=== PATIENT | female | born 1955 | race Caucasian/White ===

== ENCOUNTER 2019-04-03 08:27 | Day surgery (SDC) | payer OTHER ==
[~2019-04-03] VITALS: Ht 160 cm; Wt 59.5 kg
[~2019-04-03 08:27] MED LIST: Co Q-10300 MG PO; EUTHYROX75 MCG PO; NIAC500 PO; VALA500 PO
--- NOTE | 2019-04-03 09:17 | NUR ---
04/03/19 0917 Sugar Hernandez PT DECLINED LIDOCAINE WITH IV START.
== END 2019-04-03 10:19 | disposition home or self-care (01) ==
LOC: ORSCSDS 08:27
PROVIDERS: Surgery
PROC: 0DJD8ZZ Inspection of Lower Intestinal Tract, Via Natural or Artificial Opening Endoscopic (ICD-10-PCS; principal; 2019-04-03 09:45)
DX: Z12.11 Encounter for screening for malignant neoplasm of colon (principal); Z86.010 Personal history of colon polyps; Z80.0 Family history of malignant neoplasm of digestive organs; E78.00 Pure hypercholesterolemia, unspecified; E03.9 Hypothyroidism, unspecified; Z79.899 Other long term (current) drug therapy
CPT/HCPCS: J2704; J7120

== ENCOUNTER 2023-03-13 21:59 | Inpatient (IN) | payer OTHER ==
[~2023-03-13] VITALS: Ht 160 cm; Wt 61.2 kg
[2023-03-13 22:26] LABS: BASOPHILS ABSOLUTE AUTO 0.04 K/mm3 (0.00-0.23); BASOPHILS PERCENT AUTO 0 % (0-2); EOSINOPHILS PERCENT AUTO 0 % (0-6); Hematocrit 43.3 % (33.0-51.0); Hemoglobin 14.9 g/dL (11.5-16.0); IMMATURE GRAN ABSOLUTE AUTO 0.08 K/mm3 (0.00-0.10); IMMATURE GRAN PERCENT AUTO 1 % (0-1); LYMPHOCYTES ABSOLUTE AUTO 0.97 K/mm3 (0.84-5.20); LYMPHOCYTES PERCENT AUTO 6 % (21-46); MONOCYTES ABSOLUTE AUTO 1.15 K/mm3 (0.16-1.47); MONOCYTES PERCENT AUTO 7 % (4-13); Mean Corpuscular HGB 30.8 pg (26.0-34.0); Mean Corpuscular HGB Conc 34.4 g/dL (31.5-36.5); Mean Corpuscular Volume 90 fL (80-100); Mean Platelet Volume 8.7 fL (9.1-12.4); NEUTROPHILS ABSOLUTE AUTO 15.06 K/mm3 (1.96-9.15); NEUTROPHILS PERCENT AUTO 87 % (41-73); Platelet Count 275 K/mm3 (150-400); RDW Coefficient Variation 12.8 % (11.7-14.2); RDW Standard Deviation 41.9 fL (35.1-46.3); Red Blood Cell Count 4.84 M/mm3 (3.80-5.20)
[2023-03-13 22:46] LABS: Albumin, Blood 4.3 g/dL (3.4-5.0); Albumin/Globulin Ratio 1.5 (0.8-1.8); Bilirubin, Total 1.3 mg/dL (0.1-1.0); Bun/Creatinine Ratio 20.7 (12.0-20.0); Calcium, Blood 8.9 mg/dL (8.5-10.1); Creatinine, Blood 0.82 mg/dL (0.40-1.00); Globulin, Blood 2.9 g/dL (2.2-4.0); Total Protein, Blood 7.2 g/dL (6.4-8.2)
[2023-03-13] MEDS ORDERED: PREGABALIN25 MG PO (23:25)
[2023-03-13] MEDS ORDERED: Phendimetrazine35 MG PO (23:25)
[2023-03-14] VITALS (14 sets, daily range): BP systolic 92–120; BP diastolic 54–75
[2023-03-14 01:55] LABS: Source, Urine Clean Catch
[2023-03-14 01:57] LABS: Bilirubin, Urine Neg (Neg); Blood, Urine Neg (Neg); Glucose Qualitative, Urine Neg (Neg); Ketones, Urine 4+ (Neg); Leukocyte Esterase, Urine 1+ (Neg); Nitrite, Urine Neg (Neg); Protein, Urine 1+ (Neg); Urobilinogen, Urine NORM (Normal)
[2023-03-14 02:05] LABS: Appearance, Urine Clear (Clear); Bacteria Few /hpf; Color, Urine Yellow (P-Yellow); Mucus Light (0-Heavy); Red Blood Cells, Urine Not Seen /hpf (0-2); Squamous Epithelial Cells Few /hpf (Few)
--- NOTE | 2023-03-14 03:59 | NUR ---
SHIFT SUMMARY PT ARRIVED TO THE FLOOR AT 0155. TRANSPORTED VIA GURNEY, TRANSFERRED TO BED WITH 1 ASST. PT HAVING PAIN WITH MOVEMENT, K-PAD OBTAINED FOR COMFORT. PT MEDICATED PER EMAR. PT A&O X4, PLEASENT. VSS. NPO AT ARRIVAL, GIVEN SWABS FOR DRY MOUTH. PT ABLE TO GET UP AND VOID. NO BOWEL MOVEMENT. NO OTHER QUESTIONS AT THIS TIME. CALL LIGHT WITHIN REACH.
--- NOTE | 2023-03-14 07:15 | NUR ---
PREOP: DR SIMENTAL IN TO SEE PATIENT AND SIGN CONSENT FOR SURGERY. PT EDUCATED. STATES PAIN AT TOLERABLE LEVEL AT THIS TIME. VSS. PT CONCERN THAT SHE HAS NOT HAD FLUIDS. WILL START PREOP FLUIDS WHEN ORDERED.
--- NOTE | 2023-03-14 08:40 | NUR ---
SURGERY: PT TO DAYSURGERY AT THIS TIME. SPOUSE NOTIFIED. PAS PLACED TO BL LEGS. 18G IV STARTED. PT HAS VOIDED AND REMOVED WATCH AND CLOTHING. WILL CONT TO MONITOR WHEN RETURNS TO ROOM POST OP.
--- NOTE | 2023-03-14 08:58 | NUR ---
PT HAS 18G IN RFA THAT SHOWS NO SIGNS OF INFILTRATION, NO SWELLING, NO INFLAMMATION, NO DRAINAGE NOTED. FLOWS WELL TO GRAVITY.
--- NOTE | 2023-03-14 12:58 | NUR ---
OXYGEN: PT SATS DROP TO 88% WITH SLEEP. PLACED ON 1L O2 TO ALLOW PT REST. WILL CONT TO MONITOR AND WEAN OFF ABLE.
--- NOTE | 2023-03-14 15:36 | NUR ---
Upon receiving a referral for spiritual care, I visited the patient. She tells me about the events that led to her hospitalization, her surgery and the plan of care moving forward. 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 She is pleasant and is easily encouraged by converation centered around her chata. I provide therapeutic listening and prayer. Patient responded well and showed signs of an elevated mood.
--- NOTE | 2023-03-14 18:59 | NUR ---
PT HAS BEEN STABLE POST OP. INCISIONS CLEAN AND DRY. PT TOLERATING DIET WELL. ENCOURAGING FLUIDS. PT URINE BERTHA. IV INFUSING PER ORDERS. OXYCODONE EFFECTIVE FOR PAIN. PT AMBULATES WITH STANDBY ASSIST. NO NAUSEA. NO FLATUS YET. PLAN TO DC TO HOME TOMORROW.
[2023-03-15 04:25] VITALS: BP 111/67
--- NOTE | 2023-03-15 04:25 | NUR ---
SHIFT SUMMARY S/P LAP APPY. X4 LAP SITES TO ABD WITH WOUND GLUE REMAIN CDI. PT RENE REG DIET. REPORTS FLATUS. DENIES N/V. INDEP IN ROOM. IV ABX PER ORDERS. 1 ROXICODONE FOR PAIN MANAGEMENT. PT LOOKING FORWARD TO DISCHARGING HOME TODAY. CALL LIGHT WITHIN REACH.
[2023-03-15 07:40] VITALS: BP 106/63
[2023-03-15] MEDS ORDERED: AMOCLA875 PO (11:09)
[2023-03-15] MEDS ORDERED: Acetaminophen650 M1 PO (11:09)
[2023-03-15] MEDS ORDERED: Norco 5-325 Ta1 EACH PO (11:10)
--- NOTE | 2023-03-15 11:27 | NUR ---
DISCHARGE NOTE: PATIENT AND PATIENTS FAMILY MEMBER WERE EDUCATED ON DISCHARGE INSTRUCTIONS. BOTH VERBALIZED UNDERSTANDING OF INSTRUCTIONS AND HAD NO FURTHER QUESTIONS AT THIS TIME. HARD PERSCRIPTION WAS GIVEN TO PATIENT AND ABX WAS FAXED TO [employer] [facility]. PATIENT IS A&OX4. HER ABD HAS X4 LAP SITES WITH WOUND GLUE THAT IS C/D/I. SHE IS TOLERATING PO INTAKE AND IS VOIDING/PASSING GAS. PAIN IS MANAGED WITH ORAL PAIN MEDS. PATIENT IS DRESSED AND HAS PERSONAL ITEMS IN THE ROOM GATHERED. SHE IS BEING WHEELCHAIRED OUT TO FAMILY MEMBERS CAR TO BE TAKEN HOME.
== END 2023-03-15 11:15 | disposition home or self-care (01) | DRG 343 ==
LOC: ER 21:59 → SURS 03-14 01:06
PROVIDERS: Student in an Organized Health Care Education/Training Program; Surgery; ADMIT Surgery
PROC: 0DTJ4ZZ Resection of Appendix, Percutaneous Endoscopic Approach (ICD-10-PCS; principal; 2023-03-14 09:30)
DX: K35.891 Other acute appendicitis without perforation, with gangrene (principal); E03.9 Hypothyroidism, unspecified; B00.9 Herpesviral infection, unspecified; G62.0 Drug-induced polyneuropathy; T45.1X5A Adverse effect of antineoplastic and immunosuppressive drugs, initial encounter; Z85.09 Personal history of malignant neoplasm of other digestive organs; Z98.891 History of uterine scar from previous surgery; Z90.710 Acquired absence of both cervix and uterus; Z88.1 Allergy status to other antibiotic agents; Z88.8 Allergy status to other drugs, medicaments and biological substances; Z79.890 Hormone replacement therapy; Z79.899 Other long term (current) drug therapy; Z98.890 Other specified postprocedural states
CPT/HCPCS: 74177; 80053; 81001; 83690; 85025; 88304; 88305; 96374-59; 96375; 99285-25; A9270; J0295; J2270; J2405; J2704; J3010; J7120; Q9967

== ENCOUNTER → 2025-06-04 | Outpatient (CLI) | payer OTHER ==
[~2025-06-04] MED LIST changes: +AMOCLA875 PO; +Acetaminophen650 M1 PO; +Norco 5-325 Ta1 EACH PO; +PREGABALIN25 MG PO; +Phendimetrazine35 MG PO
== END ==
LOC: LAB SHORT 06:51 → LAB 06:51 → EDSTATUS 06-03 15:35 → LAB FUT 06-03 15:35
DX: R10.A1 Flank pain, right side (principal)
CPT/HCPCS: 87338